=== PATIENT | female | born 1990 | race Caucasian/White ===

== ENCOUNTER 2016-10-28 18:11 | Emergency (ER) | payer OTHER ==
[~2016-10-28] VITALS: Ht 180.3 cm; Wt 92.9 kg
[2016-10-28] MEDS ORDERED: VIST50CA PO (18:29)
[2016-10-28] MEDS ORDERED: ADDE30CA3 PO (18:29)
[2016-10-28] MEDS ORDERED: KEFL500C17 PO (20:24)
[2016-10-28 20:30] VITALS: BP 123/76
--- NOTE | 2016-10-29 08:23 | REP ---
LEFT HAND SERIES, COMPLETE: 10/28/2016 CLINICAL HISTORY: Swelling about the left 3rd finger. No known injury. FINDINGS: Four views show some soft tissue swelling about the PIP joint of the third digit. No radiopaque foreign body, avulsion fracture or focal lesion. No erosive change in that IP joint. The other IP joints all phalanges, MCP joints, metacarpals and carpal bones are intact throughout. IMPRESSION: 1. Minor swelling about the PIP joint of the 3rd digit. No fracture, avulsion, foreign body or other acute finding. Signed by Evans Alvarez MD 10/29/2016 10:38 A
== END 2016-10-28 20:43 | disposition home or self-care (01) ==
LOC: M ED 20:28
DX: M79.89 Other specified soft tissue disorders (principal); M79.645 Pain in left finger(s); F90.9 Attention-deficit hyperactivity disorder, unspecified type; Z79.899 Other long term (current) drug therapy